=== PATIENT | female | born 1960 | race Hispanic/Latino ===

== ENCOUNTER → 2019-08-18 11:09 | Outpatient (CLI) | payer OTHER, SELFPAY ==
--- NOTE | 2019-08-18 11:12 | DI.MRI.S_ITS ---
PROCEDURE: MR LUMBAR SPINE WO CON INDICATIONS: Lumbosacral spondylosis with radiculopathy right-sided TECHNIQUE: Noncontrast sagittal T1 spin echo and T2 fast echo, sagittal STIR, axial T1 and T2 fast spin echo through the lumbar spine. In cases with scoliosis, additional coronal T2 fast spin echo may be performed. COMPARISON: None. FINDINGS: Image quality: Excellent. Alignment and Curvature: There is grade I L4-L5 anterolisthesis secondary to facet hypertrophy. Bone Marrow: Reactive endplate change is noted adjacent to the L2-L3 and L5-S1 discs. No acute vertebral body compression fractures. Spinal Cord: Conus medullaris terminates at the L1 level. Visualized cord demonstrates normal signal and size. Paraspinous Soft Tissues: No paravertebral masses. L1-L2: Loss of disc signal. Mild, diffuse disc bulge. No central stenosis. No neural foraminal narrowing. No neural compression. L2-L3: Loss of disc signal and height. Mild, diffuse disc bulge. Mild narrowing of the central canal. Mild bilateral neural foraminal narrowing. No neural compression. L3-L4: Loss of disc signal and slight loss of disc height. Mild to moderate diffuse disc bulge. Mild narrowing of the central canal. Mild bilateral neural foraminal narrowing. No neural compression. L4-L5: Loss of disc signal. Mild diffuse disc bulge. Severe bilateral facet hypertrophy. Moderate narrowing of the central canal. Moderate bilateral neural foraminal narrowing. No neural compression. L5-S1: Loss of disc signal and height. Mild, diffuse disc bulge. Mild bilateral facet hypertrophy. No central stenosis. Mild bilateral neural foraminal narrowing. No neural compression. Fissure noted in the posterior annulus. IMPRESSION: 1. Grade I L4-L5 degenerative spondylolisthesis. 2. Multilevel degenerative disc disease. 3. Multilevel facet arthropathy. 4. Moderate L4-L5 central canal narrowing. Mild L2-L3 and L3-L4 central canal narrowing. 5. Moderate bilateral L4-L5 neural foraminal narrowing. Mild bilateral L2-L3, L3-L4 and L5-S1 neural foraminal narrowing 6. No neural compression. Dictated by: Jasmin Lopez MD, PhD on 08/18/2019 at 15:36 Approved by: Jasmin Lopez MD, PhD on 08/18/2019 at 15:53
== END ==
PROVIDERS: Family Provider Family Medicine; PCP Family Medicine; Visit Provider Physical Medicine & Rehabilitation
DX: M47.27 Other spondylosis with radiculopathy, lumbosacral region (principal); M47.26 Other spondylosis with radiculopathy, lumbar region; M43.16 Spondylolisthesis, lumbar region; M51.16 Intervertebral disc disorders with radiculopathy, lumbar region; M51.17 Intervertebral disc disorders with radiculopathy, lumbosacral region; M48.061 Spinal stenosis, lumbar region without neurogenic claudication; M48.07 Spinal stenosis, lumbosacral region
CPT/HCPCS: 72148

== ENCOUNTER → 2021-08-11 11:40 | Outpatient (CLI) | payer OTHER, SELFPAY ==
--- NOTE | 2021-08-11 11:41 | DI.MRI.S_ITS ---
PROCEDURE: MR CERVICAL SPINE WO CON INDICATIONS: CERVICAL STENOSIS UPPER EXTREMITY PARESTHESIAS TECHNIQUE: Noncontrast sagittal T1 spin echo and T2 fast spin echo, sagittal STIR, foraminal oblique sagittal T2 fast spin echo, and axial gradient echo or T2 fast spin echo through the cervical spine. COMPARISON: Outside Facility, RG, XR C-SPINE 4-6V, 05/01/2021, 14:08. FINDINGS: Image quality: Excellent. Alignment and Curvature: There is loss of normal cervical lordosis. There is mild grade 1 retrolisthesis of C4 on C5 and C5 on C6. Mild grade 1 anterolisthesis of C7 on T1 and T1 on T2. Bone Marrow: Marrow demonstrates normal overall signal. Mild reactive signal within the endplates adjacent to the C2-C3, C3-C4, and C6-C7 intervertebral discs. Moderate reactive signal within the endplates adjacent to the C4-C5 and C5-C6 intervertebral discs. Spinal Cord: Visualized spinal cord has normal size and signal. No cerebellar tonsillar herniation. Paraspinous Soft Tissues: No paravertebral masses. Prevertebral soft tissues are normal in thickness. C2-C3: Moderate disc height loss and desiccation. No significant canal, or foraminal stenosis. C3-C4: Moderate disc height loss and desiccation. Moderate left and mild right facet and uncovertebral hypertrophy. Mild canal stenosis. Severe left and mild right foraminal stenosis. Left C4 nerve root compression. C4-C5: Moderate disc height loss and desiccation. Mild diffuse disc bulge. Moderate facet and uncovertebral hypertrophy bilaterally. Moderate to severe canal stenosis. Minimal anterior cord flattening. Severe left greater than right foraminal stenosis with bilateral C5 nerve root compression. C5-C6: Moderate disc height loss and desiccation. Mild diffuse disc bulge. Moderate facet and uncovertebral hypertrophy bilaterally. Moderate to severe canal stenosis. Minimal cord flattening. Severe bilateral foraminal stenosis with left greater than right C6 nerve root compression. C6-C7: Moderate disc height loss and desiccation. Mild diffuse disc bulge. Moderate facet and uncovertebral hypertrophy bilaterally. Moderate to severe canal stenosis. Severe bilateral foraminal stenosis with bilateral C7 nerve root compression. C7-T1: Moderate disc height loss and desiccation. Mild diffuse disc bulge. Mild facet and uncovertebral hypertrophy bilaterally. Mild canal stenosis. Moderate right and mild left foraminal stenosis. IMPRESSION: 1. Multilevel degenerative disc and facet disease, as well as uncovertebral hypertrophy. 2. Multilevel canal stenoses, worst at C4-C5, C5-C6, and C6-C7. Minimal cord flattening is present at C4-C5 and C5-C6. 3. Multilevel foraminal stenoses, worst at C3-C4, C4-C5, C5-C6, and C6-C7, where there is associated intraforaminal nerve root compression. Dictated by: Gabriela Todd M.D. on 08/11/2021 at 13:24 Approved by: Gabriela Todd M.D. on 08/11/2021 at 13:29
== END ==
PROVIDERS: Family Provider Family Medicine; PCP Family Medicine; Referring Provider Physical Medicine & Rehabilitation; Visit Provider Physical Medicine & Rehabilitation
DX: M50.121 Cervical disc disorder at C4-C5 level with radiculopathy (principal); M47.22 Other spondylosis with radiculopathy, cervical region; M48.02 Spinal stenosis, cervical region
CPT/HCPCS: 72141

== ENCOUNTER → 2021-10-17 10:19 | Outpatient (CLI) | payer OTHER, SELFPAY ==
[2021-10-17 12:37] LABS: COVID19 -Nasal RAPID Negative (Negative)
== END ==
PROVIDERS: Family Provider Family Medicine; PCP Family Medicine; Visit Provider Physical Medicine & Rehabilitation
DX: Z20.822 Contact with and (suspected) exposure to COVID-19 (principal)
CPT/HCPCS: 87635; C9803

== ENCOUNTER 2021-10-19 09:08 | Outpatient (CLI) | payer OTHER, SELFPAY ==
[2021-10-19] VITALS (10 sets, daily range): BP systolic 85–97; BP diastolic 55–65; PULSE 55–67; RESP 10–23; TEMP 36.8; O2SAT 94–100
--- NOTE | 2021-10-19 09:08 | DI.RAD.S_ITS ---
PROCEDURE: PAIN C/T INTERLAMINAR INJECT INDICATIONS: SPINAL STENOSIS COMPARISON: [facility], MR, MR CERVICAL SPINE WO CON, 08/11/2021, 11:51. FINDINGS: Fluoroscopic spot filming was performed to verify placement of a spinal needle at the C6-C7 level, as labeled on the films. Appropriate location of the needle tip was confirmed by injection of iodinated contrast. IMPRESSION: No significant intraprocedural abnormality. Dictated by: Sung Schroeder M.D. on 10/19/2021 at 10:06 Approved by: Sung Schroeder M.D. on 10/19/2021 at 10:06
[2021-10-19] MEDS: fentaNYL 100 MCG/2 ML INJ 50 MCG IV (10:08)
[2021-10-19] MEDS: IOPAMIDOL 15 ML VIAL 3 ML INJ (10:11)
[2021-10-19] MEDS: DEXAMETHASONE 10 MG/ML VIAL 30 MG INJ (10:11)
[2021-10-19] MEDS: BUPIVACAINE 0.25% (PF) VIAL 2 ML INJ (10:11)
[2021-10-19] MEDS: MIDAZOLAM 5 MG/5 ML VIAL IV (10:13)
--- NOTE | 2021-10-19 10:26 | P.PCN_ITS ---
Date/Time/Diagnoses Date of procedure: 10/19/21 Time of procedure: 10:26 Pre-procedure diagnosis: 1. CERVICAL STENOSIS, 2. CERVICAL HNP WITH UPPER EXTREMITY RADICULAR FEATURES Post-procedure diagnosis: same Procedure Notes Procedure: 1. FLUORSCOPICALLY GUIDED CONTRAST CONTROLLED INTERLAMINAR EPIDURAL STEROID INJECTION - C6/7 TL RAFAL Indications: Johanny is referred by Dr. Parker for treatment of Cervical HNP with Upper Extremity Paresthesias. Physician: Kushal Mccurdy Total Fluoroscopy time (seconds): 26 Total sedation minutes: 12 Complications: none Procedure in detail & Post-procedure care: FINDINGS Cervical Stenosis due to disc deterioration and nerve root irritation and nerve root irritation DESCRIPTION OF PROCEDURE Fluoroscopically guided, contrast-controlled C6/7 translaminar epidural steroid injection with conscious sedation. Following review of allergy and review of potential side effects and complications, including, but not necessarily limited to, infection, allergic reaction, local tissue breakdown, temporary as well as permanent nerve injury, stroke, paralysis, and possible , the patient indicated that patient understood and agreed to proceed. An informed consent document was signed by the patient, witnessed by a nurse, and placed in the patient's chart. Additionally, other treatment options including modalities, medications, and physical therapy were reviewed with the patient. After review of previous anaesthesic history and IV conscious sedation the patient was deemed safe to proceed with today?s procedure with IV conscious sedation as ASA class II designation. Safety time-out was performed to confirm patient ID, procedure to be performed and site of procedure. IV sedation was accomplished with a combination of 2mg of Versed and 50mcg of Fentanyl administered by the RN after DO order, titrated to patient comfort during the course of the procedure while the patient remained responsive to all verbal commands. In the prone position, following sterile prep and drape of the cervical region, the C6/7 translaminar space was identified fluoroscopically. The skin was anesthetized via a 25-gauge 1.5-inch needle with 1% lidocaine solution. At this point, a 25-gauge, 2.5-inch short bevel spinal needle was atraumatically introduced and advanced under fluoroscopic guidance into epidural space at the C6/7 translaminar space. Depth was confirmed on lateral view. Radiological data, including multiple fluoroscopic views of the cervical spine, reveal a spinal needle at the C6/7 translaminar space. Lateral views then show placement of the needle in the epidural space. Subsequent views show contrast material flowing superiorly and inferiorly in the epidural space. DSA fluoroscopy with live contrast injection, once again, confirmed no vascular or intrathecal uptake. At this point, using loss of resistance technique with saline and air, the epidural space was entered. Following negative aspiration, injection of ap proximately 1.5 cc of Isovue-200 with live fluoroscopy in the AP view confirmed epidural flow in the epidural space without vascular or intrathecal uptake observed. Subsequently, a test dose of 1 cc of 1% lidocaine solution was injected and patient was observed for two minutes without signs or symptoms of complications, including abdominal pain, shortness of breath, bilateral upper or lower extremity weakness, nausea and vomiting, prior to steroid injection. At this point, 3cc or 30mg of dexamethasone was then injected without incident. The patient tolerated the procedure well without signs or symptoms of complications prior to being transferred to the recovery area for further monitoring, The patient was then transferred to the recovery area where they were observed for an appropriate period of time after the injection. The patient reported a VAS score of 6 prior to the procedure and a post-procedure VAS of 0. POST OP INSTRUCTIONS The patient was provided a Pain Log to continue to record their response to the target-specific procedure prior to follow-up visit with the referring provider. Additionally, specific post-injection care instructions and a contact number to our office were provided if concerns arise regarding possible complications associated with the procedure are suspected.
== END 2021-10-19 10:50 | disposition home or self-care (01) ==
PROVIDERS: Family Provider Family Medicine; PCP Family Medicine; Referring Provider Physical Medicine & Rehabilitation; Visit Provider Physical Medicine & Rehabilitation
DX: M48.02 Spinal stenosis, cervical region (principal); M50.123 Cervical disc disorder at C6-C7 level with radiculopathy
CPT/HCPCS: 62321; 99152; J1100; J2250; J3010

== ENCOUNTER → 2023-11-29 14:59 | Outpatient (CLI) | payer OTHER, SELFPAY ==
--- NOTE | 2023-11-29 15:03 | DI.RAD.S_ITS ---
PROCEDURE: XR LUMBAR SPINE MIN 4V INDICATIONS: BACK PAIN TECHNIQUE: 5 views of the lumbar spine were acquired, including bilateral oblique views. COMPARISON: None. FINDINGS: Bones: 5 nonrib-bearing vertebrae are present. There is abnormal bony alignment with grade 1-2 anterolisthesis of L4 on L5, likely due to facet osteoarthritis at this level and ligamentous laxity associated with degenerative disc disease. No vertebral body compression fractures. No suspicious bony lesions. Moderately severe L4-L5 bilateral foraminal stenosis appears present associated with facet hyperostosis and subluxation and height reduction of the disc spaces. Soft tissues: Overlying bowel gas pattern is normal. No suspicious soft tissue calcifications. Oblique images: No pars defects. IMPRESSION: No acute bony abnormality. Significant spinal and foraminal stenosis appears present at L4-L5 associated with grade 1-grade 2 anterolisthesis of L4 on L5. Degenerative disc disease at L4-5 is moderately severe and near [id number] articulation at L5-S1. Spinal and foraminal stenosis likely also is present at L5-S1. Dictated by: Ananda Brown M.D. on 11/29/2023 at 16:07 Approved by: Ananda Brown M.D. on 11/29/2023 at 16:10
--- NOTE | 2023-11-29 15:03 | DI.RAD.S_ITS ---
PROCEDURE: XR CERVICAL SPINE 4V OR 5V INDICATIONS: NECK PAIN TECHNIQUE: 5 views of the cervical spine acquired including both obliques. COMPARISON: None. FINDINGS: Bones: No fractures or dislocations to the T1 level. Oblique images demonstrate significant bony foraminal stenoses bilaterally from c4 through C7 due to disc height reduction, facet hyperostosis and posterior disc disease with osteophytic spurring at these levels.. Soft tissues: No prevertebral soft tissue swelling. IMPRESSION: Significant spinal and foraminal stenosis appears present bilaterally from C4 through C7 with likelihood of the most pronounced nerve root impingement being centered at C5-6 and C6-7 at the neural foramen bilaterally symmetric. Dictated by: Ananda Brown M.D. on 11/29/2023 at 16:10 Approved by: Ananda Brown M.D. on 11/29/2023 at 16:12
== END ==
PROVIDERS: Family Provider Family Medicine; PCP Family Medicine; Referring Provider Physical Medicine & Rehabilitation; Visit Provider Physical Medicine & Rehabilitation
DX: M47.22 Other spondylosis with radiculopathy, cervical region (principal); M48.02 Spinal stenosis, cervical region; M47.27 Other spondylosis with radiculopathy, lumbosacral region; M51.17 Intervertebral disc disorders with radiculopathy, lumbosacral region; M51.16 Intervertebral disc disorders with radiculopathy, lumbar region; M48.061 Spinal stenosis, lumbar region without neurogenic claudication; M43.16 Spondylolisthesis, lumbar region
CPT/HCPCS: 72050; 72110

== ENCOUNTER 2023-12-17 10:14 | Outpatient (CLI) | payer OTHER, SELFPAY ==
[2023-12-17] VITALS (9 sets, daily range): BP systolic 93–117; BP diastolic 64–74; PULSE 62–73; RESP 12–17; O2SAT 97–100
--- NOTE | 2023-12-17 10:45 | DI.RAD.S_ITS ---
PROCEDURE: PAIN L/S TRANSFORAMINAL INJECT INDICATIONS: LUMBO SACRAL SPONDYLOSIS COMPARISON: None. FINDINGS: Fluoroscopic spot filming was performed to verify placement of spinal needles at the right L4-L5 level(s), as labeled on the films. Appropriate location(s) of the needle tip(s) was confirmed by injection of iodinated contrast. IMPRESSION: Fluoroscopic images demonstrate spinal needle at the right L4-L5 level. Please see operative report for details. Dictated by: Jose Rasheed M.D. on 12/17/2023 at 16:32 Approved by: Jose Rasheed M.D. on 12/17/2023 at 16:33
[2023-12-17] MEDS: MIDAZOLAM 2 MG/2 ML VIAL IV (11:39)
[2023-12-17] MEDS: iopamidoL 15 ML VIAL 3 ML INJ (11:44)
[2023-12-17] MEDS: BETAMETHASONE 30 MG/5 ML MDV 6 MG INJ (11:44)
[2023-12-17] MEDS: DEXAMETHASONE 10 MG/ML VIAL INJ (11:45)
[2023-12-17] MEDS: BUPIVACAINE 0.25% (PF) VIAL 2 ML INJ (11:45)
--- NOTE | 2023-12-17 11:55 | P.PCN_ITS ---
Date/Time/Diagnoses Date of procedure: 12/17/23 Time of procedure: 11:55 Pre-procedure diagnosis: 1. FORAMINAL STENOSIS WITH LE SYMPTOMS Post-procedure diagnosis: same Procedure Notes Procedure: 1. FLUOROSCOPICALLY GUIDED CONTRAST CONTROLLED TRANSFORAMINAL EPIDURAL STEROID INJECTION - RIGHT L4/5 TFESI Indications: Johanny is referred by Dr. Parker for treatment of Foraminal Stenosis with Right LE Symptoms Physician: Kushal Mccurdy Total Fluoroscopy time (seconds): 12 Total sedation minutes: 13 Complications: none Procedure in detail & Post-procedure care: FINDINGS Foraminal Nerve Root Compression secondary to disc disease and facet hypertrophy DESCRIPTION OF PROCEDURE Following review of allergy and review of potential side effects and complications, including, but not necessarily limited to, infection, allergic reaction, local tissue breakdown, stroke, temporary or permanent nerve injury, paralysis, and possible , the patient indicated that the patient understood and agreed to proceed. An informed consent document was signed by the patient, witnessed by a nurse, and placed in the patient's chart. Additionally, other treatment options including medications, modalities, and physical therapy were reviewed with the patient. After review of previous anaesthesic history and IV conscious sedation the patient was deemed safe to proceed with today?s procedure with IV conscious sedation as ASA class II designation. Safety time-out was performed to confirm patient ID, procedure to be performed and site of procedure. IV sedation was accomplished with a combination of 2mg of Versed was administered by the RN after DO order, titrated to patient comfort during the course of the procedure while the patient remained responsive to all verbal commands In the prone position following sterile prep and drape of the lumbar region, the right L4/5 posterior neuroforamen was identified fluoroscopically. The skin was anesthetized via a 25-gauge 1.5-inch needle with 1% lidocaine solution. At this point, a 25-gauge 3.5-inch spinal needle was atraumatically introduced and advanced under fluoroscopic guidance through the posterior right L4/5 neuroforamen to approximately the anterior aspect of the canal. Depth was confirmed on lateral view. Following negative aspiration, injection of approximately 1.5cc of Isovue 200 under live fluoroscopy in the AP view c onfirmed excellent flow along the nerve root, into the epidural space without vascular or intrathecal uptake observed Radiological data, including multiple fluoroscopic views of the lumbosacral spi ne, reveal a spinal needle at the right L4/5 posterior neuroforamen. Subsequent views show flow of contrast material flowing superiorly and inferiorly along the nerve root confirming epidural flow. Subsequently, a test dose of 1.5 cc of 1% lidocaine solution was administered and patient was observed for two minutes for signs or symptoms of complications, including abdominal pain, shortness of breath, bilateral upper or lower extremity weakness, nausea and vomiting, prior to steroid injection. At this point, a total of 2cc or 10mg of dexamethasone and 6mg of betamethasone was injected without incident. The procedure tolerated the procedure well without signs or symptoms of complications prior to transfer to the recovery area continued monitoring without incident. The patient was then transferred to the recovery area where they were observed for an appropriate time after the injection. The patient reported a VAS score of 7 prior to the procedure and a post- procedure VAS of 0. POST OP INSTRUCTIONS The patient was provided a Pain Log to continue to record their response to the target-specific procedure prior to follow-up visit with their referring physician. Additionally, specific post-injection care instructions and a contact number to our office were provided if concerns arise regarding possible complications associated with the procedure are suspected.
== END 2023-12-17 12:18 | disposition home or self-care (01) ==
PROVIDERS: Family Provider Family Medicine; PCP Family Medicine; Referring Provider Physical Medicine & Rehabilitation; Visit Provider Physical Medicine & Rehabilitation
DX: M48.061 Spinal stenosis, lumbar region without neurogenic claudication (principal); M51.16 Intervertebral disc disorders with radiculopathy, lumbar region; M47.26 Other spondylosis with radiculopathy, lumbar region
CPT/HCPCS: 64483; 99152; J0702; J1100; J2250; J3490